=== PATIENT | male | born 1990 | race Hispanic/Latino ===

== ENCOUNTER 2021-02-22 23:39 | Emergency (ER) | payer OTHER ==
[~2021-02-22] VITALS: Ht 180.3 cm; Wt 92.1 kg
[2021-02-23 00:15] VITALS: BP 139/65
[2021-02-23 00:42] LABS: BILIRUBIN,URINE Negative (NEGATIVE); COLOR,URINE Yellow (YELLOW); GLUCOSE, URINE (UA) Negative (NEGATIVE); KETONES,URINE Trace mg/dL (NEGATIVE); LEUKOCYTE ESTERASE ,URINE Negative (NEGATIVE); NITRATE,URINE Negative (NEGATIVE); OCCULT BLOOD,URINE Negative (NEGATIVE); PROTEIN,URINE Negative (NEGATIVE)
[2021-02-23 00:44] LABS: APPEARANCE,URINE CLEAR (CLEAR)
[2021-02-23] MEDS ORDERED: AZITHROMYCIN 250 MG TABLET PO SCH (01:00)
[2021-02-23] MEDS ORDERED: CEFTRIAXONE SODIUM 500 MG (DOSE 250-750MG) VIAL IM SCH (01:00)
[2021-02-23 01:05] VITALS: BP 127/63
[2021-02-23] MEDS ORDERED: LIDOCAINE HCL-MPF 1% 2ML VIAL ONE (01:06)
[2021-02-25 09:09] LABS: CHLAMYDIA DNA N.A.AMPLIFY Negative (Negative)
== END 2021-02-23 01:18 | disposition home or self-care (01) ==
LOC: EDH 23:52
DX: R30.0 Dysuria (principal); Z20.2 Contact with and (suspected) exposure to infections with a predominantly sexual mode of transmission
CPT/HCPCS: 81003; 87486; 87797; 96372; 99283; J0696; J3490